=== PATIENT | male | born 1995 | race Caucasian/White ===

== ENCOUNTER 2017-08-15 14:58 | Emergency (ER) | END 2017-08-15 17:43 | disposition left against medical advice (07) ==

== ENCOUNTER 2018-01-27 07:36 | Inpatient (IN) | END 2018-01-28 18:49 | disposition home or self-care (01) | DRG 520 ==

== ENCOUNTER 2018-01-29 12:36 | Emergency (ER) | END 2018-01-29 19:00 | disposition home or self-care (01) ==

== ENCOUNTER 2018-02-05 21:51 | Emergency (ER) | END 2018-02-05 23:07 | disposition home or self-care (01) ==

== ENCOUNTER 2018-05-24 08:47 | Emergency (ER) | END 2018-05-24 11:28 | disposition home or self-care (01) ==